=== PATIENT | female | born 1940 | race Caucasian/White ===

== ENCOUNTER 2021-07-03 10:24 | Emergency (ER) | payer OTHER ==
[~2021-07-03] VITALS: Ht 149.9 cm; Wt 50.8 kg
[~2021-07-03 10:24] MED LIST: COZAAR 50 MG TA50 M1 PO; HYCET 7.5 MG-3473 ML; IMITREX 50 MG T50 M1 PO; K-DUR 20 MEQ T20 MEQ PO; LANSOPRAZOLE30 MG PO; LASIX 40 MG TAB40 M1 PO; TUMS PO; ZANTAC 150MG T150 M1 PO
[2021-07-03] MEDS ORDERED: NORCO5 PO (12:23)
[2021-07-03 12:30] VITALS: BP 121/73
== END 2021-07-03 12:36 | disposition home or self-care (01) ==
LOC: ER 10:24
DX: M25.511 Pain in right shoulder (principal); I10 Essential (primary) hypertension; Z98.890 Other specified postprocedural states; Z79.891 Long term (current) use of opiate analgesic; Z79.899 Other long term (current) drug therapy; Z88.8 Allergy status to other drugs, medicaments and biological substances